=== PATIENT | female | born 1985 | race African-American/Black ===

== ENCOUNTER 2018-06-21 18:42 | Emergency (ER) | payer SELFPAY ==
[~2018-06-21] VITALS: Ht 160 cm; Wt 58.1 kg
[2018-06-21 18:53] VITALS: BP 122/83
[2018-06-21] MEDS ORDERED: Lidocaine 1% MPF 10mg/ml 5ml INJ ONE (19:15)
[2018-06-21] MEDS ORDERED: Azithromycin 250mg tab ORAL ONE (19:15)
--- NOTE | 2018-06-21 19:18 | Emergency Room Report ---
History of Present Illness General Chief Complaint: Skin Rash/Abscess Source: Patient Present Illness HPI Pt. presents to the ED c/o 5/10 in severity tender/ painful palpable right- sided inguinal mass that is swollen and has been progressive x 1 week. pt. reports similar symptoms in the same area in the past which required i & D and left scarring/scar tissue that has always been palpable. pt. denies fevers or chills. denies vaginal d/c or hx of STI pt. reports unprotected intercourse in the past but had "normal pap smears". pt. denies joint pain or lesions elsewhere on the body. pt. think this may be an ingrown hair although she tried hot bath with no relief. Denies CP, Palpitations, LOC, AMS, dizziness, Changes in Vision, Sensation, paresthesias, or a sudden severe headache. pt. denies hx of immune compromise. Pt. denies . Allergies: Coded Allergies: No Known Allergies (Unverified , 06/21/18) Patient History Past Medical History: see triage record Past Surgical History: none Pertinent Family History: none Last Menstrual Period: 05/25/18 Now: No Immunizations: UTD Reviewed Nursing Documentation: PMH: Agreed; PSxH: Agreed Nursing Documentation-PMH Past Medical History: No Stated History Review of Systems All Other Systems: negative except mentioned in HPI Physical Exam Vital Signs Date Time Temp Pulse Resp B/P (MAP) Pulse Ox O2 Delivery O2 Flow Rate FiO2 06/21/18 18:44 98.6 112 20 122/83 99 Room Air Sp02 EP Interpretation: reviewed, normal General Appearance: no apparent distress, alert, GCS 15, non-toxic Head: normocephalic, atraumatic Eyes: bilateral eye normal inspection, bilateral eye PERRL ENT: hearing grossly normal, normal voice Neck: full range of motion Respiratory: chest non-tender, lungs clear, normal breath sounds, speaking full sentences Cardiovascular #1: regular rate, rhythm, tachycardia Gastrointestinal: normal bowel sounds, non tender, soft Rectal: deferred Genitourinary: normal inspection, other - palpable right-sided inguinal mass that is indurated without fluctuance. suspicious for bulbous Musculoskeletal: back normal, gait/station normal, normal range of motion, non- tender Neurologic: alert, oriented x3, responsive, motor strength/tone normal, sensory intact, speech normal, grossly normal Psychiatric: judgement/insight normal Skin: normal color, no rash, warm/dry, well hydrated Lymphatic: no adenopathy Medical Decision Making PA Attestation Dr. George is my supervising Physician whom patient management has been discussed with. Diagnostic Impression: Primary Impression: Abscess ER Course Pt. presents to the ED c/o 12/26 in severity tender/ painful palpable right- sided inguinal mass that is swollen and has been progressive x 1 week. pt. reports similar symptoms in the same area in the past which required i & D and left scarring/scar tissue that has always been palpable. pt. denies fevers or chills. denies vaginal d/c or hx of STI pt. reports unprotected intercourse in the past but had "normal pap smears". pt. denies joint pain or lesions elsewhere on the body. pt. think this may be an ingrown hair although she tried hot bath with no relief. Denies CP, Palpitations, LOC, AMS, dizziness, Changes in Vision, Sensation, paresthesias, or a sudden severe headache. pt. denies hx of immune compromise. Pt. denies . Ddx considered but are not limited to abscess, sebaceous cyst, LAD, lymphoma, LGV, inguinal hernia Vital signs: tachycardic on presentation, pt. is afebrile - Pt. reports getting anxious/nervous at hospitals and when possibility of needles/incision/drainage. - denies drug use. H&PE are most consistent with swollen lymph-node possible LGV will treat prophylactically - palpable right-sided inguinal mass that is indurated without fluctuance. ORDERS: none required at this time, the diagnosis is clinical ED INTERVENTIONS: -250mg Rocephin IM -1gram Azithromycin PO - Pt. does not want I & D unless absolutely necessary as she does not do well with needles. d/w pt. that if this is related to STD ( lgv) that I & D is not always recommended first-line. d/w pt. will treat aggressively with antibiotics , and will monitor for worsening of her symptoms or if symptoms are not resolving. d/w pt. that treatment needs to be continued x 3 weeks. and educated on taking 1g of azithromycin on 05/28 and the last dose on 06/04. d/w pt. to do hot compresses multiple times per day and to refrain from digital manipulation/squeezing. Pt. verbalizes her understanding and agreement with treatment plan. father is also present for instructions. DISCHARGE: At this time pt. is stable for d/c to home. Will provide printed patient care instructions, and any necessary prescriptions. Care plan and follow up instructions have been discussed with the patient prior to discharge. Last Vital Signs Date Time Temp Pulse Resp B/P (MAP) Pulse Ox O2 Delivery O2 Flow Rate FiO2 06/21/18 18:53 98.6 112 20 122/83 99 Room Air Disposition: HOME, SELF-CARE Condition: Stable Scripts Mupirocin* (MUPIROCIN*) 22 Gm Oint...g. 1 APPLIC TOPIC THREE TIMES A DAY, #22 GM Prov: Leslye Washington 06/21/18 Azithromycin (ZITHROMAX) 500 Mg Tablet 1000 MG ORAL QWEEK, #4 TAB Prov: Leslye Washington 06/21/18 Referrals: NOT CHOSEN IPA/MD,REFERRING (PCP) Patient Instructions: Abscess Additional Instructions: Take medications as directed. Take second dose of 1000mg Azithromycin in 1 week from 06/21, each dose 1 week apart (05/21-in ED, 05/28, and 06/04). !! Hot compresses 6-8 times daily- DO NOT SQUEEZE THE INFECTED AREA Follow up with a Primary Care Provider in 3-5 days, even if your symptoms have resolved. --Please review list of primary care clinics, if you do not already have a primary care provider Return sooner to ED if new symptoms occur, or current symptoms become worse. - Please note that this Emergency Department Report was dictated using [employer] design technology software, occasionally this can lead to erroneous entry secondary to interpretation by the dictation equipment. Leslye Washington Jun 21, 2018 19:18
[2018-06-21] MEDS ORDERED: MUPIROCIN22 GM TOPIC (19:22)
[2018-06-21] MEDS ORDERED: ZITHROMAX500 MG ORAL (19:22)
[2018-06-21 20:12] VITALS: BP 126/86
== END 2018-06-21 20:13 | disposition home or self-care (01) ==
LOC: EMR 18:58
DX: L02.214 Cutaneous abscess of groin (principal)
CPT/HCPCS: 96372; 99283; J0696